=== PATIENT | male | born 1980 | race Caucasian/White ===

== ENCOUNTER 2023-06-25 08:37 | Outpatient (CLI) | payer OTHER ==
--- NOTE | 2023-06-25 12:33 | CT Report ---
PROCEDURE: LOWER EXTREMITY WO - LT INDICATIONS: LEFT FOOT PAIN TECHNIQUE: Noncontrast 1-mm axial sections acquired from the distal tibial shaft to the talar dome, with coronal and sagittal reformats. For radiation dose reduction, the following was used: automated exposure c ontrol, adjustment of mA and/or kV according to patient size. COMPARISON: None. FINDINGS: Image quality: Excellent. Bones: There is prior surgical fusion of calcaneocuboid joint with surgical hardware in place. Align ment of left ankle and foot is anatomic. No acute fracture or dislocation. No evidence of hardware lo osening or failure. Near complete bony fusion at calcaneocuboid joint is seen. Mild osteoarthritic ch anges are noted in hindfoot joints more notably in talonavicular joint and subtalar joint. No gross o steochondral injuries of talar dome. There is no evidence of metatarsal stress fracture. No suspiciou s bony lesions. Soft tissues: There is no abnormal soft tissue calcifications. No significant joint effusion or calc ified intra-articular loose bodies. No full-thickness extensor or flexor tendon rupture. Achilles ten don is intact. Peroneus tendons are grossly intact. Impression: 1. Prior fusion of calcaneocuboid joint with near complete bony fusion. No gross hardware loosening o r failure. 2. 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 No acute fracture or dislocation. No metatarsal stress fracture. 3. No gross soft tissue abnormality is seen in left ankle and foot. Reviewed by: Stanley Varner MD on 06/25/2023 12:31 PM PDT Approved by: Stanley Varner MD on 06/25/2023 12:31 PM PDT Station ID: [id number]
== END 2023-06-25 08:38 | disposition home or self-care (01) ==
LOC: DI 08:37
PROVIDERS: ATTEND Internal Medicine
DX: M19.072 Primary osteoarthritis, left ankle and foot (principal); Z98.1 Arthrodesis status